=== PATIENT | male | born 1935 | race Caucasian/White ===

== ENCOUNTER → 2017-01-29 | Outpatient (CLI) | payer OTHER, MEDICARE | LOC: BHLMT 13:30 | PROVIDERS: ATTEND Internal Medicine Cardiovascular Disease | DX: R94.31 Abnormal electrocardiogram [ECG] [EKG] (principal); R00.2 Palpitations; I48.92 Unspecified atrial flutter | CPT/HCPCS: 93005-PO ==

== ENCOUNTER 2017-02-05 07:52 | Day surgery (SDC) | payer OTHER, MEDICARE ==
[2017-02-05] MEDS ORDERED: NS 500 ML IV ONE (08:05)
[2017-02-05] MEDS ORDERED: PROPOFOL 200 MG/20 ML VIAL IVP ONE (08:05)
[2017-02-05] MEDS ORDERED: fentaNYL 100 MCG/2 ML INJ IVP ONE (08:05)
[2017-02-05] MEDS ORDERED: BENZOCAINE UNIT DOSE SPRAY HURRICAINE MM ONE (08:05)
[2017-02-05] MEDS ORDERED: MIDAZOLAM 2 MG/2 ML VIAL IVP ONE (08:05)
--- NOTE | 2017-02-05 08:21 | CPEKG ---
Heart Rate: 128 RR Interval: 469 QRSD Interval: 166 QT Interval: 400 QTC Interval: 584 QRS [place]: -47 T Wave [place]: -1 EKG Severity - ABNORMAL ECG - EKG Impression: ATRIAL FLUTTER, A-RATE 254 EKG Impression: ABERRANT COMPLEX, POSSIBLY SUPRAVENTRICULAR EKG Impression: RIGHT BUNDLE BRANCH BLOCK Electronically Signed By: Miguel Angel Roth 05-Feb-2017 15:41:02
[2017-02-05 08:44] LABS: INR 1.14 (0.83-1.16); PROTIME(PATIENT) 14.5 SEC (12.0-15.0)
[2017-02-05 08:45] LABS: APTT 27.5 SEC (23.0-38.0)
[2017-02-05 08:53] LABS: ANION GAP 9 mEq/L (8-16); CALCIUM 9.2 mg/dL (8.5-10.4); CARBON DIOXIDE 24 mEq/l (22-31); CHLORIDE 104 mEq/L (97-110); CREATININE 0.9 mg/dL (0.7-1.3); GLOMERULAR FILTRATION RATE > 60; GLUCOSE 95 mg/dL (70-100); MAGNESIUM 2.1 mg/dL (1.6-2.3); POTASSIUM 4.1 mEq/L (3.5-5.2); SODIUM 137 mEq/L (134-144)
[2017-02-05] MEDS ORDERED: LIDOCAINE 1% 5 ML SDV ONE (09:21)
[2017-02-05] MEDS ORDERED: APIXABAN 5 MG TAB ONE (09:23)
[2017-02-05] MEDS ORDERED: APIXABAN 5 MG TAB PO ONE (09:30)
[2017-02-05] MEDS ORDERED: PROPOFOL 200 MG/20 ML VIAL ONE (09:46)
--- NOTE | 2017-02-05 09:47 | PDTEE1 ---
FRANCISCO JAVIER Cardioversion Procedure Procedure: Electrical Cardioversion Indications: Other (Atrial Flutter) Consent: Signed and in Chart Anticoagulation: Eliquis Procedural Details: Pads were placed in anterior-posterior position. FRANCISCO JAVIER probe was advanced and standard images obtained. There is no evidence of left atrial or left atrial appendage thrombus. Synchronized cardioversion attempt #1: 100J Results: Normal sinus rhythm Conclusions: Successful FRANCISCO JAVIER Cardioversion
--- NOTE | 2017-02-05 10:06 | CPEKG ---
Heart Rate: 61 RR Interval: 984 P-R Interval: 288 QRSD Interval: 142 QT Interval: 448 QTC Interval: 452 P [place]: 11 QRS [place]: -28 T Wave [place]: -15 EKG Severity - ABNORMAL ECG - EKG Impression: SINUS RHYTHM EKG Impression: FIRST DEGREE AV BLOCK EKG Impression: RIGHT BUNDLE BRANCH BLOCK EKG Impression: IN COMPARISON TO PRIOR ECG, NORMAL SINUS RHYTHM HAS REPLACED ATRIAL FLUTTER Electronically Signed By: Miguel Angel Roth 05-Feb-2017 15:41:30
== END 2017-02-05 11:30 | disposition home or self-care (01) ==
LOC: FCATH 07:52
PROVIDERS: ATTEND Internal Medicine Cardiovascular Disease
DX: I48.92 Unspecified atrial flutter (principal); I34.8 Other nonrheumatic mitral valve disorders; R94.31 Abnormal electrocardiogram [ECG] [EKG]; Z79.01 Long term (current) use of anticoagulants
CPT/HCPCS: J2704

== ENCOUNTER → 2017-07-19 | Outpatient (CLI) | payer OTHER, MEDICARE | LOC: BHLMT 14:00 | PROVIDERS: ATTEND Internal Medicine Cardiovascular Disease | DX: R94.31 Abnormal electrocardiogram [ECG] [EKG] (principal) | CPT/HCPCS: 78452; 93017; A9500; J2785 ==

== ENCOUNTER → 2018-09-12 | Outpatient (CLI) | payer OTHER, MEDICARE | LOC: BHLMT 09:00 | PROVIDERS: ATTEND Internal Medicine Cardiovascular Disease | DX: I48.92 Unspecified atrial flutter (principal) | CPT/HCPCS: 93225-PO; 93226-PO ==